=== PATIENT | female | born 1960 | race Caucasian/White ===

== ENCOUNTER → 2018-07-08 | Outpatient (CLI) | payer OTHER ==
[~2018-07-08] MED LIST: CA C1TAB11 PO; CALC1TAB32 PO; CHOL100058 PO; GLUC-198 PO; GLUC100026 PO; OMEP-218 PO; OMEP2.5S PO
--- NOTE | 2018-07-08 14:42 | RADIOLOGY IMAGING REPORT ---
FACILITY: [facility] PATIENT NAME: SHEILA AVILES : [id number] MR: [id number] V: [id number] EXAM DATE: ORDERING PHYSICIAN: EDDIE SAAVEDRA TECHNOLOGIST: Geri Whiteside PROCEDURE:BILATERAL DIGITAL SCREENING MAMMOGRAM WITH CAD ASSISTED INTERPRETATION & 3D TOMOSYNTHESIS COMPARISON:Prior mammograms 07/07/17, 07/06/16, 07/02/15, 06/28/14, 06/15/13, 06/14/12. INDICATIONS:screening FINDINGS: Small to moderate amount of fibroglandular tissue is seen throughout the breasts. The parenchymal pattern has remained stable allowing for difference in mammographic technique & patient positioning. There is no evidence of malignant appearing mass, malignant appearing calcifications or other secondary sign of malignancy in either breast. DIAGNOSTIC CATEGORY 1--NEGATIVE. RECOMMENDATIONS: ROUTINE MAMMOGRAM AND CLINICAL EVALUATION. IMPRESSION: BIRADS 1: Negative. No significant abnormality is seen. Dictated by: Heather Coates M.D. on 07/08/2018 at 13:45 Transcribed by: RODO on 07/08/2018 at 13:54 Approved by: Heather Coates M.D. on 07/08/2018 at 14:41 [facility]
== END ==
LOC: MAMO 04:25
PROVIDERS: ATTEND Nurse Practitioner Family
DX: Z12.31 Encounter for screening mammogram for malignant neoplasm of breast (principal)
CPT/HCPCS: 77063; 77067